=== PATIENT | female | born 1975 | race Caucasian/White ===

== ENCOUNTER 2020-05-15 14:15 | Emergency (ER) | payer MEDICAID, SELFPAY ==
[2020-05-15 15:24] VITALS: BP 142/73; PULSE 60; RESP 16; TEMP 36.6; O2SAT 99; BMI 29.9
--- NOTE | 2020-05-15 16:58 | ED.FALL ---
HPI - Fall General Chief Complaint: Head Injury Stated Complaint: fell hurt back Time Seen by Provider: 05/15/20 16:58 History of Present Illness HPI Narrative: Patient has a longstanding history of back pain and she was walking and got a spasm in her back which made her twisted abruptly causing her to fall over and hit the back of her head and she believes she was unconscious for a brief period of time and now has a headache and some dizziness, no nausea or vomiting, the headache is not progressing, she never had confusion, no vision changes no neck pain no numbness or tingling She also complains of urinary frequency change in the odor and some mild discomfort with urination for 2-3 days, no fever no vomiting no abdominal pain Related Data Previous Rx's Medication Instructions Recorded ibuprofen 800 mg PO Q8H PRN #20 tab 05/15/20 lidocaine 1 patch TOPICAL DAILY PRN #15 ea 05/15/20 nitrofurantoin monohyd/m-cryst 100 mg PO Q12H 5 Days #10 cap 05/15/20 [Macrobid] phenazopyridine [Pyridium] 200 mg PO TID PRN #6 tab 05/15/20 Allergies Allergy/AdvReac Type Severity Reaction Status Date / Time morphine [Morphine] Allergy Severe ANAPHALYXIS Unverified 03/17/20 17:21 Review of Systems Review of Systems: Review of systems is positive for a mild headache, resolved dizziness, back pain and mild discomfort with urination There is a mild headache there is no nausea vomiting or vision changes There is no neck pain No chest pain no shortness of breath next time line no abdominal pain Extremities no injuries or pain to legs or arms The back has some right and left lower lumbar tenderness there is no CVA tenderness there is no bony tenderness Extremities is full range of motion x4 and gait is normal There is no motor or sensory deficit, the patient communicates normally and appropriately, she ambulates normally, her cerebellar exam is normal her balance is normal, cranial nerves 2-12 were intact is examined Yes all other systems are reviewed and are negative [facility] Past Medical History Medical History (Updated 05/15/20 @ 18:40 by GACRÍA Colbert) Back pain Gastroschisis Surgical History (Updated 05/15/20 @ 15:27 by [place]) Status post breast reduction Social History Social History Alcohol intake: never Smoked in Last 30 Days: No Use of substances other than those prescribed or required for medical reasons: No Advance Directives: No Advance Directives Information Provided: No Physical Exam Vital Signs: Vital Signs: Last Vital Signs Temp 97.9 F 05/15/20 15:24 Pulse 60 05/15/20 15:24 Resp 16 05/15/20 15:24 BP 142/73 H 05/15/20 15:24 Pulse Ox 99 05/15/20 15:24 Body Mass Index 29.9 Course Course Course Narrative: Head CT was negative and patient remained comfortable with no dizziness and resolution without treatment of her headache and neurological intact The patient had the complaint of dysuria but we failed to send the urine and patient did not want a wait for a repeat urine sample so I treated her for probable urinary tract infection with Macrobid but no lab was sent MDM - Fall Lab Data Attestation: I reviewed the patient's lab results. Imaging Data CT scan - head: Radiologist's impression: INGS: There are no pathologic extra-axial fluid collections. The lateral, third, fourth ventricles are nondilated and concordant with the appearance of the sulci. There is no evidence for acute intraparenchymal hemorrhage or infarct. There is neither mass nor mass effect. There is no shift of midline structures. The paranasal sinuses and mastoid air cells are clear. There are no osseous lesions. CT/CT head/brain wo con IMPRESSION: No evidence for acute intracranial injury. Discharge Plan Discharge Clinical Impression: Dysuria Back pain Qualifiers: Back pain location: low back pain Chronicity: chronic Back pain laterality: bilateral Sciatica presence: without sciatica Qualified Code(s): M54.5 - Low back pain Head injury Qualifiers: Encounter type: initial encounter Qualified Code(s): S09.90XA - Unspecified injury of head, initial encounter Patient Disposition: Home, Self-Care Additional Instructions: Your head CT was normal Follow with primary c care doctor for any minor symptoms but if you develops severe headaches dizziness confusion vomiting weakness anything worse come back any time We did not send the urine but as you need to leave we are going to treat for urinary tract infection as you have common symptoms so you will be treated with an antibiotic and a medication that reduces urinary discomfort Return any time for vomiting fever abdominal pain any worse condition or any concerns For back pain follow with primary care physician for physical therapy and further evaluation Prescriptions: New nitrofurantoin monohyd/m-cryst [Macrobid] 100 mg capsule 100 mg PO Q12H 5 Days Qty: 10 RF: 0 phenazopyridine [Pyridium] 200 mg tablet 200 mg PO TID PRN (Reason: pain with urination) Qty: 6 RF: 0 ibuprofen 800 mg tablet 800 mg PO Q8H PRN (Reason: pain) Qty: 20 RF: 0 lidocaine 5 % adhesive patch,medicated 1 patch topical DAILY PRN (Reason: back pain) Qty: 15 RF: 0 Interventions: ED Discharge Assessment Last Done: 05/15/20 18:41 Discharge Date/Time: 05/15/20 18:48
--- NOTE | 2020-05-15 17:10 | CT_ITS ---
EXAMINATION: CT HEAD WITHOUT CONTRAST CLINICAL INFORMATION: Fall. Loss of consciousness. COMPARISON: 02/17/2019. TECHNIQUE: Contiguous helical images of the brain were obtained without IV contrast. Multiplanar reconstructions were performed. DLP: 611 mGy-cm. FINDINGS: There are no pathologic extra-axial fluid collections. The lateral, third, fourth ventricles are nondilated and concordant with the appearance of the sulci. There is no evidence for acute intraparenchymal hemorrhage or infarct. There is neither mass nor mass effect. There is no shift of midline structures. The paranasal sinuses and mastoid air cells are clear. There are no osseous lesions. CT/CT head/brain wo con IMPRESSION: No evidence for acute intracranial injury. Automated exposure control (Care Dose) Adjustment of the mA and/or kv according to patient size (this includes techniques or standardized protocols for targeted exams where dose is matched to indication / reason for exam; i.e. extremities or head).
[2020-05-15] MEDS: Nitrofurantoin Monohyd/M-Cryst 100 MG CAPSULE PO (18:48)
[2020-05-15] MEDS: Ibuprofen 800 MG TABLET PO (18:48)
== END 2020-05-15 18:48 | disposition home or self-care (01) ==
PROVIDERS: Emergency Provider Emergency Medicine; PCP Nurse Practitioner Family
DX: G44.309 Post-traumatic headache, unspecified, not intractable (principal); M54.5 Low back pain; R30.0 Dysuria; Z79.899 Other long term (current) drug therapy
CPT/HCPCS: 70450; 99284

== ENCOUNTER 2020-10-18 16:43 | Emergency (ER) | payer MEDICAID, SELFPAY ==
[2020-10-18 18:58] VITALS: BP 174/106; PULSE 85; RESP 16; TEMP 37.4; O2SAT 99; BMI 29.4
--- NOTE | 2020-10-18 19:15 | PC.NURSE ---
PATIENT CALLING EMS FROM HER PHONE IN THE WAITING ROOM. STATING WE ARE NOT TAKING CARE OF HER FAST ENOUGH.
== END 2020-10-18 19:21 | disposition left against medical advice (07) ==
PROVIDERS: Emergency Provider Emergency Medicine; PCP Nurse Practitioner Family
DX: S00.10XA Contusion of unspecified eyelid and periocular area, initial encounter (principal); Y35.813A Legal intervention involving manhandling, suspect injured, initial encounter; Y93.89 Activity, other specified; Y92.511 Restaurant or cafe as the place of occurrence of the external cause; Y99.9 Unspecified external cause status
CPT/HCPCS: 99281; 99282